=== PATIENT | male | born 1960 | race Caucasian/White ===

== ENCOUNTER → 2020-11-06 09:35 | Outpatient (CLI) | payer MEDICARE, SELFPAY ==
--- NOTE | ~2020-11-06 | XR_ITS ---
XR knee RT 3V DATE: 11/06/2020 09:58 INDICATION: Chronic right knee pain, swelling TECHNIQUE: [place] and AP and lateral views COMPARISON: None FINDINGS: There is prominent distention of the suprapatellar bursa consistent with knee joint effusio n. There is prominent periarticular spurring at the patellofemoral joint and mild particular spurring at the lateral compartment. No fracture or dislocation, periosteal reaction or bone destruction or radiopaque intra-articular loo se body or chondrocalcinosis is evident. IMPRESSION: Prominent joint effusion Osteoarthritis involving particularly the patellofemoral joint, with mild involvement of the lateral compartment Reviewed, dictated and finalized at location B. ER IMPRESSION: Prominent joint effusion Osteoarthritis involving particularly the patellofemoral joint, with mild invol vement of the lateral compartment
== END ==
PROVIDERS: PCP Family Medicine; Visit Provider Family Medicine
DX: M25.561 Pain in right knee (principal); G89.29 Other chronic pain; M25.461 Effusion, right knee
CPT/HCPCS: 73562

== ENCOUNTER → 2022-09-03 10:21 | Outpatient (CLI) | payer MEDICARE, SELFPAY ==
--- NOTE | ~2022-09-03 | XR_ITS ---
Thoracic spine: Clinical Indication: Pain AP and lateral views were performed. No fracture is seen. There is normal alignment of the vertebrae. The intervertebral disc spaces appe ar normal. Paravertebral soft tissues appear normal. Impression: No significant abnormalities noted. Reviewed, dictated and finalized at location [] CE SERVICES ASSISTANT Impression: No significant abnormalities noted.
--- NOTE | ~2022-09-03 | XR_ITS ---
Clinical Indication: Right-sided thoracic pain PA and lateral views of the chest: Comparison: None Findings: The lungs are clear, without evidence of focal consolidation or pleural effusion. Cardiome diastinal silhouette is within normal limits. Bones and soft tissues are unremarkable. Impression: Normal chest. Reviewed, dictated and finalized at location [] E MINIMIZATION TECHNICIAN Impression: Normal chest.
== END ==
PROVIDERS: PCP Family Medicine; Visit Provider Family Medicine
DX: M54.6 Pain in thoracic spine (principal)
CPT/HCPCS: 71046; 72072

== ENCOUNTER → 2024-06-06 11:29 | Outpatient (CLI) | payer MEDICARE, SELFPAY ==
--- NOTE | ~2024-06-06 | XR_ITS ---
3 VIEWS LUMBAR SPINE Ordering provider: Dakota Butts, History: . mid low back pain x 3 months . Comparison: None. FINDINGS: VERTEBRAL BODIES: No visible fracture or subluxation. Degenerative changes of the spine. DISK SPACES: Narrowing of the disc T12-L1, L1-L2, L2-L3 and L5-S1. Multilevel facet joint disease. SOFT TISSUES: Normal. IMPRESSION: No acute osseous abnormality lumbar spine. Reviewed, dictated and finalized at location A.
== END ==
LOC: EXPCRAD 11:32
PROVIDERS: PCP Family Medicine; Visit Provider Family Medicine
DX: M54.50 Low back pain, unspecified (principal)
CPT/HCPCS: 72100

== ENCOUNTER → 2025-06-01 09:08 | Outpatient (CLI) | payer MEDICARE, SELFPAY ==
--- NOTE | ~2025-06-01 | XR_ITS ---
XR thoracic spine 3V Indication: Mid-lower back pain radiates down LT leg months no injury Comparison: None Findings: Moderate loss of vertebral heights, no fracture or subluxation. Moderate loss of disc height. Soft tissues unremarkable Impression: No acute abnormality. Reviewed, dictated and finalized at location A. Impression: No acute abnormality.
== END ==
LOC: EXPCRAD 09:12
PROVIDERS: PCP Family Medicine; Visit Provider Family Medicine
DX: M54.6 Pain in thoracic spine (principal)
CPT/HCPCS: 72072